=== PATIENT | female | born 1970 | race American Indian/Alaskan Native ===

== ENCOUNTER 2019-03-03 05:45 | Day surgery (SDC) | payer MEDICAID ==
[2019-03-03] MEDS ORDERED: NACL BACTERIOSTATIC INFILTRATI ONE (06:40)
[2019-03-03] MEDS ORDERED: LACTATED RINGERS 1,000 ML IV SCH (07:00)
[2019-03-03] MEDS ORDERED: VERSED IV NR (07:03)
[2019-03-03] MEDS ORDERED: XYLOCAINE 1% 20 mL ONE (07:12)
[2019-03-03] MEDS ORDERED: MARCAINE 0.25% INFILTRATI ONE ×2 (07:13→07:54)
[2019-03-03] MEDS ORDERED: SUBLIMAZE ONE (07:17)
[2019-03-03] MEDS ORDERED: XYLOCAINE MPF 2% ONE (07:17)
[2019-03-03] MEDS ORDERED: DIPRIVAN 10 MG/ML IV ONE ×2 (07:18→08:07)
[2019-03-03] MEDS ORDERED: KETALAR ONE (07:24)
[2019-03-03] MEDS ORDERED: ceFAZolin 2 GM in NACL 0.9% 100 ML IV ONE (07:25)
[2019-03-03] MEDS ORDERED: SUBLIMAZE IV PRN (07:43)
[2019-03-03] MEDS ORDERED: DILAUDID IV PRN (07:43)
[2019-03-03] MEDS ORDERED: ZOFRAN IV PRN (07:43)
[2019-03-03] MEDS ORDERED: NACL 0.9% IR ONE (07:54)
[2019-03-03] MEDS ORDERED: XYLOCAINE 1% 20 mL INFILTRATI ONE (07:54)
[2019-03-03] MEDS ORDERED: ANCEF/STERILE WATER 2 GM/20 ML 2 GM/20 ML SYRINGE IV NR (08:00)
[2019-03-03] MEDS ORDERED: ANCEF ONE ×2 (08:03→08:30)
--- NOTE | 2019-03-03 08:39 | Anesthesia Consultation ---
Anesthesia Consult and Med Hx Date of service: 03/03/19 - Airway Anesthetic Teeth Evaluation: Good ROM Head & Neck: Adequate Mental/Hyoid Distance: Adequate Mallampati Class: Class II Intubation Access Assessment: Probably Good - Pulmonary Exam CTA: Yes - Cardiac Exam Cardiac Exam: RRR - Pre-Operative Health Status ASA Pre-Surgery Classification: ASA2 Proposed Anesthetic Plan: General, MAC - Pulmonary Hx Smoking: Yes (FORMER;FOR 15YRS; QUIT ') Hx Respiratory Symptoms: No Hx Sleep Apnea: No - Cardiovascular System Hx Hypertension: Yes (2012) Hx Heart Attack/AMI: No Hx Cardia Arrhythmia: No - Central Nervous System Hx Neuromuscular Disorder: No Hx Back Pain: Yes Hx Psychiatric Problems: No - Gastrointestinal Hx Gastroesophageal Reflux Disease: No - Endocrine Hx Renal Disease: No Hx Liver Disease: No Hx Insulin Dependent Diabetes: No Hx Non-Insulin Dependent Diabetes: No - Hematic Hx Sickle Cell Disease: Yes (TRAIT) - Other Systems Hx Alcohol Use: Yes (WINE) Hx Substance Use: No Hx Cancer: No - Additional Comments Anesthesia Medical History Comments: No GAC, No FHAC
--- NOTE | 2019-03-03 08:39 | Anesthesia Day of Surgery ---
Anesthesia Day of Surgery - Day of Surgery Patient Examined: Yes Patient H&P Reviewed: Yes Patient is NPO: Yes (1899) Beta Blockers: No (n/a) Cardiac Clearance: No (n/a) Pulmonary Clearance: No (n/a)
--- NOTE | 2019-03-03 08:44 | Short Stay Summary ---
Short Stay Documentation Date of service: 03/03/19 - History Principal diagnosis: soft tissue mass posterior neck H&P: obtained from office - Allergies and Medications Current Medications: Allergies No Known Allergies Allergy (Verified 02/27/19 17:14) Home Medications Medication Instructions Recorded Confirmed Last Taken Type amLODIPine [Norvasc] 10 mg PO DAILY 02/27/19 03/03/19 03/02/19 History Active Medications Fentanyl (Sublimaze) 50 mcg IV Q5MIN PRN PRN Reason: Pain , Severe (7-10) Stop: 03/03/19 20:00 Hydromorphone HCl (Dilaudid) 0.5 mg IV Q10MIN PRN PRN Reason: Pain , Severe (7-10) Stop: 03/03/19 20:00 Lactated Ringer's (Lactated Ringers) 1,000 mls @ 75 mls/hr IV DIRECT MARY Last Admin: 03/03/19 06:55 Dose: 75 mls/hr Documented by: Cefazolin Sodium (Ancef/Sterile Water 2 Gm/20 Ml) 2 gm in 20 mls @ 80 mls/hr IV PREOP NR Stop: 03/03/19 15:00 Midazolam HCl (Versed) 2 mg IV ONCE NR Stop: 03/03/19 16:00 Last Admin: 03/03/19 07:12 Dose: 2 mg Documented by: Ondansetron HCl (Zofran) 4 mg IV ONCE PRN PRN Reason: Nausea And Vomiting Stop: 03/03/19 20:00 - Brief post op/procedure progress note Date of procedure: 03/03/19 Pre-op diagnosis: soft tissue mass posterior neck Post-op diagnosis: same Procedure: excision of soft tissue mass posterior scalp Anesthesia: MAC, local Findings: 3 cm soft tissue mass Surgeon: JENNIFER WAKEFIELD Estimated blood loss: minimal Pathology: list (soft tissue mass posterior neck) Specimen disposition: to lab Condition: stable - Hospital course Hospital course: Pt observed in PACU and discharged to home in stable condition when criteria met - Disposition Condition at discharge: Good Disposition: DC-01 TO HOME OR SELFCARE Short Stay Discharge Plan Activity: no restrictions Diet: regular Wound: open to air, other (do not flex/bend neck too much in the first week after surgery) Additional Instructions: SEE PRINTED DISCHARGE INSTRUCTIONS Follow up with: SILVANO SONI MD [Primary Care Provider] - 7 Days JENNIFER WAKEFIELD DO [Staff Physician] - 14 Days
--- NOTE | 2019-03-03 09:23 | Post Anesthesia Evaluation ---
- Post Anesthesia Evaluation Patient Participated: Yes Airway Patent: Yes Stable Respiratory Function: Yes Nausea/Vomiting: No Temp > 96.8F: Yes Pain Manageable: Yes Adequeate Hydration: Yes Anesthesia Complications: No
[2019-03-03 10:41] VITALS: BP 123/74
--- NOTE | 2019-03-04 10:34 | Operative Report ---
PREOPERATIVE DIAGNOSIS: Soft tissue mass, posterior neck. POSTOPERATIVE DIAGNOSIS: Soft tissue mass, posterior neck. PROCEDURE: Excision of soft tissue mass, posterior neck. ANESTHESIA: MAC, local. FINDINGS: A 3 cm soft tissue mass. SURGEON: Lissa Dueñas DO ESTIMATED BLOOD LOSS: Minimal. PATHOLOGY: Soft tissue mass, posterior neck. SPECIMEN DISPOSITION: To lab. CONDITION OF PATIENT: Stable. HISTORY OF PRESENT ILLNESS AND INDICATION: The patient is a 48-year-old female who was referred to the surgery clinic for a mass on her posterior neck, upper back area. The patient stated it had grown in size and was becoming more painful. Therefore, recommendation was to have it removed. I discussed all risks, benefits, alternatives to surgery with the patient and questions answered. Consent was obtained. PROCEDURE IN DETAIL: The patient was identified in the preoperative area, taken back to the operating room, placed on the operating table in supine position. After anesthesia was induced, the patient was placed in right lateral decubitus position with all bony prominences padded. The neck and upper back were prepped and draped in the usual sterile fashion. Local anesthetic was infiltrated into the skin and subcutaneous tissue overlying the palpable soft tissue mass. A 3-4 cm transverse incision was made using a #15 blade. Dissection was carried down through the skin and subcutaneous tissue using Bovie electrocautery until the mass was identified. The mass was grasped with a forceps and circumferentially dissected from the surrounding tissue using a combination of blunt dissection with a gloved finger and hemostat as well as electrocautery. Once the mass was circumferentially dissected from all the surrounding subcutaneous tissue, it was transected and passed off the table as a specimen. The mass measured approximately 3 cm, was lobulated and fatty, consistent with a lipoma. The wound was irrigated and checked for hemostasis. Hemostasis was carefully achieved using a combination of electrocautery and pressure. Wound was once again irrigated and hemostasis ensured. The deep dermal layer was then closed with the interrupted 2-0 Vicryl sutures and the skin was closed with 4-0 Monocryl subcuticular running stitch and skin glue. Prior to complete closure, the skin was once again infiltrated with local anesthetic. At the end of the case, all sponge, instrument, sharp counts were correct x 2. The patient was awoken from anesthesia and taken to PACU in stable condition. JOB# [id number] BISI/OZIEL
== END 2019-03-03 09:50 | disposition home or self-care (01) ==
LOC: OR 05:45
PROVIDERS: ATTEND Surgery
DX: M79.89 Other specified soft tissue disorders (principal); R22.1 Localized swelling, mass and lump, neck; I10 Essential (primary) hypertension; Z90.710 Acquired absence of both cervix and uterus; Z72.89 Other problems related to lifestyle; Z98.890 Other specified postprocedural states; Z79.899 Other long term (current) drug therapy; Z87.891 Personal history of nicotine dependence
CPT/HCPCS: 21552; 88304; J0690; J2250; J2704; J3010; J7120; 88307